=== PATIENT | male | born 1990 | race American Indian/Alaskan Native ===

== ENCOUNTER 2017-12-25 16:58 | Emergency (ER) | payer SELFPAY ==
[2017-12-25] MEDS ORDERED: NACL 0.9% 1000 ML 1,000 ML IV ONE (17:56)
[2017-12-25] MEDS ORDERED: REGLAN IV ONE (18:02)
[2017-12-25 18:20] LABS: Basophils % (Auto) 0.4 % (0.0-1.8); Eosinophils # (Auto) 0.2 K/mm3 (0.0-0.4); Eosinophils % (Auto) 1.9 % (0.0-4.3); Hematocrit 40.5 % (35.5-45.6); Hemoglobin 12.7 gm/dl (11.8-15.2); Lymphocytes # (Auto) 1.8 K/mm3 (1.2-5.4); Lymphocytes % (Auto) 20.1 % (13.4-35.0); Mean Corpuscular HGB Conc 32 % (32-34); Mean Corpuscular Volume 75 fl (84-94); Monocytes # (Auto) 0.9 K/mm3 (0.0-0.8); Monocytes % (Auto) 9.8 % (0.0-7.3); Platelet Count 270 K/mm3 (140-440); Red Cell Distribution Width 15.6 % (13.2-15.2)
[2017-12-25 18:22] LABS: Mean Corpuscular Hemoglobin 24 pg (28-32)
[2017-12-25 18:35] LABS: INR 0.98 (0.87-1.13)
[2017-12-25 18:45] LABS: Creatine Kinase MB 3.8 ng/mL (0.0-4.0)
[2017-12-25 18:46] LABS: Albumin 4.2 g/dL (3.9-5); BUN/Creatinine Ratio 12; Blood Urea Nitrogen 12 mg/dL (9-20); Calcium 8.7 mg/dL (8.4-10.2); Hemolysis Index 128
[2017-12-25 18:50] LABS: Alanine Aminotransferase 17 units/L (7-56)
--- NOTE | 2017-12-25 19:32 | Cat Scan Report ---
FINAL REPORT PROCEDURE: CT HEAD/BRAIN WO CON TECHNIQUE: Computerized tomography of the head was performed without contrast material. HISTORY: syncope COMPARISON: No prior studies are available for comparison. FINDINGS: Brain: Brain density appears normal. No evidence of intracranial hemorrhage. No parenchymal hemorrhage, mass lesions or mass effect are seen. No abnormal extra-axial fluid collects or masses are seen. Ventricles: Ventricles are normal size and are midline. Bone Windows: No evidence of skull fracture. Paranasal sinuses: There is moderate nodular mucosal thickening in the right side of the sphenoid sinus. There is patchy mucosal disease in several of the ethmoid air cells. There is mild nodularity medially in the left frontal sinus and minimal mucosal thickening medially in the right frontal sinus. Visualized portions of the paranasal sinuses otherwise are clear. Maxillary sinuses are not visualized. Mastoid air cells: Visualized portions are clear. IMPRESSION: Negative unenhanced CT of the brain. No acute or focal intracranial abnormality is seen. Moderate paranasal sinus disease as described.
[2017-12-25 21:13] LABS: Amphetamine Screen,Urine PRESUMPTIVE NEGATIVE; Benzodiazepines Screen,Urine PRESUMPTIVE NEGATIVE; Cannabinoid Screen,Urine PRESUMPTIVE NEGATIVE; Cocaine Screen,Urine PRESUMPTIVE NEGATIVE; Methadone Screen,Urine PRESUMPTIVE NEGATIVE; Opiate Screen,Urine PRESUMPTIVE NEGATIVE
[2017-12-25 21:22] LABS: Bilirubin,Urine NEG (Negative); Blood,Urine NEG (Negative); Color,Urine Yellow (Yellow); Protein,Urine <15 mg/dL mg/dL (Negative); Urobilinogen,Urine < 2.0 mg/dL (<2.0)
--- NOTE | 2017-12-25 21:27 | Emergency Department Report ---
HPI - General Chief Complaint: Dizziness Time Seen by Provider: 12/25/17 17:38 - HPI HPI: The patient is a 27-year-old male who presents for evaluation of dizziness and syncope. The patient states that one hour prior to arrival, he experienced close it is severe dizziness after getting out of his car, exacerbated with standing and ambulation. He says "he passed out. He denies any pain. The patient also denies fever, head injury, headache, neck pain, neck stiffness, vision or hearing changes, smell or taste changes, paresthesias, facial drooping , slurred speech, seizure-like activity, urine or bowel incontinence or retention, or other focal neurological deficit. ED Past Medical Hx - Past Medical History Previous Medical History?: No - Surgical History Past Surgical History?: No - Social History Smoking Status: Never Smoker Substance Use Type: Alcohol - Medications Home Medications: Home Medications Medication Instructions Recorded Confirmed Last Taken Type Meclizine [Antivert] 25 mg PO TID PRN #20 tablet 12/25/17 Unknown Rx ED Review of Systems ROS: Stated complaint: SYNCOPE EPISODE Other details as noted in HPI Constitutional: Reports dizziness and syncope denies: fever ENT: denies: throat or neck pain Respiratory: denies: cough, shortness of breath Cardiovascular: denies: chest pain Endocrine: denies unexplained weight loss or gain Gastrointestinal: denies: abdominal pain, nausea Genitourinary: denies: dysuria Musculoskeletal: denies: leg swelling Skin: denies: rash Neurological: denies: headache Hematological/Lymphatic: denies: easy bleeding or easy bruising Psych: denies sadness or hopelessness Physical Exam - Physical Exam Vital Signs: Vital Signs 12/25/17 12/25/17 12/25/17 17:22 17:30 19:10 Temperature 98.1 F 98.7 F Pulse Rate 71 63 Pulse Rate [ Lying] Pulse Rate [ Sitting] Pulse Rate [ Standing] Respiratory 14 16 12 Rate Blood Pressure 127/83 Blood Pressure 133/78 [Left] Blood Pressure [Lying] Blood Pressure [Sitting] Blood Pressure [Standing] O2 Sat by Pulse 100 98 Oximetry 12/25/17 19:35 Temperature Pulse Rate Pulse Rate [ 92 H Lying] Pulse Rate [ 89 Sitting] Pulse Rate [ 82 Standing] Respiratory Rate Blood Pressure Blood Pressure [Left] Blood Pressure 129/80 [Lying] Blood Pressure 130/85 [Sitting] Blood Pressure 136/81 [Standing] O2 Sat by Pulse Oximetry Physical Exam: General: well-nourished, well-developed, no acute distress Head: Normocephalic, atraumatic Eyes: normal sclera ENT: Mucous membranes are pale and dry Neck: No neck stiffness, no cervical adenopathy Respiratory: Breath sounds equal bilaterally, no wheezing, rales, or rhonchi Cardio: S1 and S2 present, no murmurs, rubs, gallops, capillary refill is delayed Abdomen: Normoactive bowel sounds, soft abdomen, no rigidity, no guarding or rebound tenderness Musc: No pitting edema Skin: No rash Neuro: alert oriented x4, normal cognition, speech normal, PERRL, EOM intact, no facial drooping, no uvula or tongue deviation on protrusion, no deficit with rotation of neck or shoulder shrug, no obvious gross motor deficit in the upper or lower extremities with flexion or extension at the shoulder, elbow, wrist, hip, knee, or ankle bilaterally, no obvious gross sensation deficit to crude touch or 2 pt discrimination, 2+ symmetric reflexes on DTR testing, no coordination deficit with [id number] or [id number] testing, Babinski downgoing, romberg negative, patient able to to ambulate without abnormal gait Psych: Normal affect ED Course Vital Signs 12/25/17 12/25/17 12/25/17 17:22 17:30 19:10 Temperature 98.1 F 98.7 F Pulse Rate 71 63 Pulse Rate [ Lying] Pulse Rate [ Sitting] Pulse Rate [ Standing] Respiratory 14 16 12 Rate Blood Pressure 127/83 Blood Pressure 133/78 [Left] Blood Pressure [Lying] Blood Pressure [Sitting] Blood Pressure [Standing] O2 Sat by Pulse 100 98 Oximetry 12/25/17 19:35 Temperature Pulse Rate Pulse Rate [ 92 H Lying] Pulse Rate [ 89 Sitting] Pulse Rate [ 82 Standing] Respiratory Rate Blood Pressure Blood Pressure [Left] Blood Pressure 129/80 [Lying] Blood Pressure 130/85 [Sitting] Blood Pressure 136/81 [Standing] O2 Sat by Pulse Oximetry ED Medical Decision Making - Lab Data Result diagrams: 12/25/17 18:01 12/25/17 18:01 - Medical Decision Making The patient was seen and examined by myself. The patient is placed on a monitoring tech and continuous pulse ox. On initial evaluation, the patient was found to be in no distress. EKG was negative for findings suggestive of acute cardiac infarct. Labs and imaging are obtained. The patient is given 1 L normal saline fluid bolus for treatment of dehydration. Chest x-ray is negative for pneumothorax, focal consolidation, pulmonary vascular congestion, pleural effusion, or other obvious acute cardiopulmonary disease process. Lab results were non-concerning including levels WBC, hemoglobin, hematocrit, electrolytes, renal function. CT scan the head is negative for acute intracranial disease process. The patient was reevaluated and reported that their symptoms were markedly improved. As the patient has a well's score less than 2, the patient is at low risk of pulmonary emboli etiology of their symptoms. The patient is stable for discharge with outpatient follow-up. The patient is given follow-up and return instructions. The patient expressed understanding and agreed with the plan. The patient is discharged in stable condition. Critical care attestation.: If time is entered above; I have spent that time in minutes in the direct care of this critically ill patient, excluding procedure time. ED Disposition Clinical Impression: Orthostatic syncope, Dehydration, Dizziness Disposition: DC-01 TO HOME OR SELFCARE Is pt being admited?: No Does the pt Need Aspirin: No Condition: Stable Instructions: Syncope (ED), Dehydration (ED), Dizziness (ED) Referrals: PRIMARY CARE, [Primary Care Provider] - 3-5 Days [facility] [Outside] - 3-5 Days Time of Disposition: 21:20
[2017-12-25 22:14] VITALS: BP 135/79
== END 2017-12-25 22:18 | disposition home or self-care (01) ==
LOC: ED 16:58
DX: R55 Syncope and collapse (principal); E86.0 Dehydration
CPT/HCPCS: 36415; 70450; 80053; 80307; 81001; 82550; 82553; 85025; 85610; 93005; 93010; 96360; 99285; J7030; J2765